=== PATIENT | male | born 1970 | race Two or more races ===

== ENCOUNTER → 2016-12-20 | Outpatient (CLI) | payer MEDICAID, OTHER | END | disposition home or self-care (01) | LOC: Rad HDHVI 14:53 | PROVIDERS: ATTEND Internal Medicine Cardiovascular Disease | DX: I08.1 Rheumatic disorders of both mitral and tricuspid valves (principal) | CPT/HCPCS: 93306 ==

== ENCOUNTER → 2017-01-16 | Outpatient (CLI) | payer MEDICAID ==
[~2017-01-16] VITALS: Ht 172.7 cm; Wt 110.7 kg
== END | disposition home or self-care (01) ==
LOC: Rad HDHVI 13:40
PROVIDERS: ATTEND Internal Medicine Cardiovascular Disease
DX: I10 Essential (primary) hypertension (principal); E11.9 Type 2 diabetes mellitus without complications; R07.9 Chest pain, unspecified; E78.00 Pure hypercholesterolemia, unspecified
CPT/HCPCS: 93017

== ENCOUNTER 2017-01-29 09:55 | Inpatient (IN) | payer MEDICAID ==
[~2017-01-29] VITALS: Ht 175.3 cm; Wt 112.6 kg
[2017-01-29 10:43] LABS: Basophils # (auto) 0 uL; Basophils % (auto) 0.7 % (0.0-2.0); Eosinophils # (auto) 0.3 uL; Eosinophils % (auto) 7.7 % (0.0-7.0); Hematocrit 43.7 % (41.0-53.0); Hemoglobin 15.1 g/dL (13.5-17.5); Lymphocytes # (auto) 1.7 uL; Mean Corpuscular Hemoglobin 29.7 pg (28.0-32.0); Mean Corpuscular Hgb Conc. 34.5 g/dL (32.0-36.0); Mean Corpuscular Volume 86.1 fL (80.0-100.0); Mean Platelet Volume 8.6 fL (7.4-10.4); Monocytes # (auto) 0.3 uL; Monocytes % (auto) 8.6 % (0.0-12.0); Neutrophils # (auto) 1.6 uL; Platelet Count (auto) 244 10^3/uL (140-450); Red Cell Distribution Width 13.9 % (11.6-16.0)
[2017-01-29 11:05] LABS: Albumin 3.7 g/dL (3.4-5.0); Alkaline Phosphatase 95 U/L (45-117); Anion Gap 9 (5-15); Aspartate Aminotransferase 20 U/L (15-37); BUN/Creatinine Ratio 20.3; Bilirubin, Total 0.6 mg/dL (0.2-1.0); Blood Urea Nitrogen 14 mg/dL (7-18); Calcium 8.6 mg/dL (8.5-10.1); Carbon Dioxide 25 mmol/L (21-32); Chloride 104 mmol/L (98-107); GFR African American 158 mL/min; GFR Non-African American 131 mL/min; Glucose 114 mg/dL (74-106); Magnesium 2.5 mg/dL (1.6-2.6); Potassium 3.6 mmol/L (3.5-5.1); Sodium 138 mmol/L (136-145); Total Protein 7.5 g/dL (6.4-8.2)
[2017-01-29] MEDS ORDERED: SODIUM CHLORIDE 0.9% 1,000 ML IV ONE (11:22)
[2017-01-29] MEDS ORDERED: NITROGLYCERIN 0.4 MG SL TAB SL PRN (13:45)
[2017-01-29] MEDS ORDERED: HYDROcodone-ACET 5/325MG TAB PO PRN (13:45)
[2017-01-29] MEDS ORDERED: TEMAZEPAM 15 MG CAP PO PRN (13:45)
[2017-01-29] MEDS ORDERED: MORPHINE SULF INJ 2 MG/ML SYRINGE 1ML IV PRN ×2 (13:45)
[2017-01-29] MEDS ORDERED: PROMETHAZINE HCL 25 MG/ML 1ML IV PRN (13:45)
[2017-01-29] MEDS ORDERED: ACETAMINOPHEN 500 MG TAB PO PRN (13:45)
[2017-01-29] MEDS ORDERED: LORazepam 0.5 MG TAB PO PRN (13:45)
[2017-01-29] MEDS ORDERED: LACTULOSE 20Gm/30ML SOLN PO PRN (13:45)
[2017-01-29] MEDS ORDERED: ASPirin 81 mg TAB PO ONE (14:00)
[2017-01-29] MEDS ORDERED: PANTOPRAZOLE 40 MG TAB PO ONE (14:00)
[2017-01-29] MEDS ORDERED: NITROGLYCERIN 0.2MG/HR TOPICAL PATCH TD ONE (14:00)
[2017-01-29] MEDS: ENOXAPARIN SOD 40 MG/0.4 ML SYRINGE SC SCH (14:20)
[2017-01-29] MEDS: SODIUM CHLORIDE 0.9% 1,000 ML IV SCH (14:20)
[2017-01-29] MEDS ORDERED: PNEUMOCOCCAL VACC POLYS 25 MCG/0.5 ML VIAL IM ONE (16:15)
[2017-01-29 18:41] VITALS: BP 125/79
[2017-01-29 20:59] VITALS: BP 118/75
[2017-01-29] MEDS: METOPROLOL TARTRATE 25 MG TAB PO SCH (21:41)
[2017-01-29] MEDS: ATORVASTATIN 20 MG TAB PO SCH (21:41)
[2017-01-29] MEDS ORDERED: METO-158 PO (21:47)
[2017-01-29] MEDS ORDERED: ASPI81TA27 PO (21:47)
[2017-01-30] MEDS: SODIUM CHLORIDE 0.9% 1,000 ML IV SCH ×2 (03:03→16:32)
[2017-01-30 05:28] VITALS: BP 122/76
[2017-01-30 07:02] LABS: Cholesterol 132 mg/dL (< 200); HDL Cholesterol 35 mg/dL (40-59); LDL Cholesterol 88 mg/dL (< 100); Triglycerides 180 mg/dL (< 150)
[2017-01-30 08:00] VITALS: BP 129/79
[2017-01-30 08:41] VITALS: BP 127/79
[2017-01-30] MEDS ORDERED: cloNIDine HCL 0.1 MG TAB PO PRN (10:00)
[2017-01-30] MEDS: ASPirin 81 mg TAB PO SCH (10:01)
[2017-01-30] MEDS: ENOXAPARIN SOD 40 MG/0.4 ML SYRINGE SC SCH (10:01)
[2017-01-30] MEDS: PANTOPRAZOLE 40 MG TAB PO SCH (10:01)
[2017-01-30] MEDS: METOPROLOL TARTRATE 25 MG TAB PO SCH ×2 (10:02→22:19)
[2017-01-30] MEDS: NITROGLYCERIN 0.2MG/HR TOPICAL PATCH TD SCH (10:03)
[2017-01-30] MEDS: ALBUTEROL SULF 2.5 MG/0.5ML(0.5%) NEB SOLN NEB SCH ×2 (12:00→18:00)
[2017-01-30 13:34] VITALS: BP 122/81
[2017-01-30 17:26] VITALS: BP 125/76
[2017-01-30 19:25] LABS: Urine Bilirubin Negative (Negative); Urine Blood Negative /uL (Negative); Urine Color Yellow (Yellow); Urine Glucose Normal (Normal); Urine Ketone Negative (Negative); Urine Nitrite Negative (Negative); Urine RBC <1 /hpf (0 - 3); Urine Urobilinogen Normal (Negative); Urine pH 6.5 (5.0-8.0)
[2017-01-30] MEDS: ATORVASTATIN 20 MG TAB PO SCH (22:19)
[2017-01-30 22:56] VITALS: BP 122/79
[2017-01-31 00:13] VITALS: BP 122/79
[2017-01-31 05:26] VITALS: BP 93/58
[2017-01-31 05:40] VITALS: BP 132/89
[2017-01-31] MEDS: SODIUM CHLORIDE 0.9% 1,000 ML IV SCH (05:43)
[2017-01-31] MEDS: ALBUTEROL SULF 2.5 MG/0.5ML(0.5%) NEB SOLN NEB SCH ×2 (06:00→12:00)
[2017-01-31 06:50] LABS: Basophils # (auto) 0 uL; Basophils % (auto) 0.4 % (0.0-2.0); Eosinophils # (auto) 0.2 uL; Eosinophils % (auto) 5.6 % (0.0-7.0); Hematocrit 44.1 % (41.0-53.0); Hemoglobin 15.2 g/dL (13.5-17.5); Lymphocytes # (auto) 2.1 uL; Lymphocytes % (auto) 48.3 % (10.0-50.0); Mean Corpuscular Hemoglobin 29.9 pg (28.0-32.0); Mean Corpuscular Hgb Conc. 34.5 g/dL (32.0-36.0); Mean Corpuscular Volume 86.6 fL (80.0-100.0); Monocytes # (auto) 0.4 uL; Monocytes % (auto) 9.4 % (0.0-12.0); Neutrophils # (auto) 1.6 uL; Neutrophils % (auto) 36.3 % (37.0-80.0); Platelet Count (auto) 237 10^3/uL (140-450); Red Cell Distribution Width 13.7 % (11.6-16.0); White Blood Cell 4.4 10^3/uL (4.4-10.8)
[2017-01-31 07:12] LABS: Albumin 3.4 g/dL (3.4-5.0); Anion Gap 10 (5-15); Aspartate Aminotransferase 21 U/L (15-37); BUN/Creatinine Ratio 20.3; Blood Urea Nitrogen 14 mg/dL (7-18); Calcium 8.5 mg/dL (8.5-10.1); Carbon Dioxide 26 mmol/L (21-32); Chloride 106 mmol/L (98-107); GFR African American 158 mL/min; GFR Non-African American 131 mL/min; Glucose 102 mg/dL (74-106); Sodium 142 mmol/L (136-145)
[2017-01-31 07:17] LABS: Alkaline Phosphatase 89 U/L (45-117); Bilirubin, Total 0.4 mg/dL (0.2-1.0); Total Protein 6.9 g/dL (6.4-8.2)
[2017-01-31] MEDS ORDERED: IOHEXOL 350 MG/ML 100ML IJ ONE (07:38)
[2017-01-31] MEDS ORDERED: LIDOCAINE 2%HCL (LOCAL ANESTH.) INJ 20ML MDV ONE (07:39)
[2017-01-31] MEDS ORDERED: fentaNYL CITRATE 100 MCG/2 ML VL ONE (08:03)
[2017-01-31] MEDS ORDERED: ANGIOMAX 250 MG VIAL IV ONE (08:03)
[2017-01-31] MEDS ORDERED: SODIUM CHL 0.9% 0 ML ONE (08:03)
[2017-01-31] MEDS ORDERED: MIDAZOLAM HCL 1MG/1ML-2 ML VIAL ONE (08:03)
[2017-01-31 08:37] LABS: Prothrombin Time 10.9 sec (9.37-12.3)
[2017-01-31 09:17] VITALS: BP 146/94
[2017-01-31] MEDS ORDERED: SODIUM CHLORIDE 0.9% 1,000 ML IV SCH (09:34)
[2017-01-31] MEDS: ENOXAPARIN SOD 40 MG/0.4 ML SYRINGE SC SCH (10:00)
[2017-01-31] MEDS: NITROGLYCERIN 0.2MG/HR TOPICAL PATCH TD SCH (10:00)
[2017-01-31] MEDS: PANTOPRAZOLE 40 MG TAB PO SCH (10:29)
[2017-01-31] MEDS: ASPirin 81 mg TAB PO SCH (10:29)
[2017-01-31] MEDS: METOPROLOL TARTRATE 25 MG TAB PO SCH (10:55)
[2017-01-31 13:00] VITALS: BP 130/80
== END 2017-01-31 17:30 | disposition home or self-care (01) | DRG 192 ==
LOC: ER 09:55 → TELE-CENTR 09:56
PROVIDERS: ADMIT Internal Medicine; ATTEND Internal Medicine
PROC: 4A023N7 Measurement of Cardiac Sampling and Pressure, Left Heart, Percutaneous Approach (ICD-10-PCS; principal; 2017-01-31)
PROC: B2111ZZ Fluoroscopy of Multiple Coronary Arteries using Low Osmolar Contrast (ICD-10-PCS; 2017-01-31)
PROC: B2151ZZ Fluoroscopy of Left Heart using Low Osmolar Contrast (ICD-10-PCS; 2017-01-31)
PROC: B41F1ZZ Fluoroscopy of Right Lower Extremity Arteries using Low Osmolar Contrast (ICD-10-PCS; 2017-01-31)
DX: R07.89 Other chest pain (principal); I10 Essential (primary) hypertension; K21.9 Gastro-esophageal reflux disease without esophagitis; J45.909 Unspecified asthma, uncomplicated; E66.9 Obesity, unspecified; Z68.36 Body mass index [BMI] 36.0-36.9, adult; Z23 Encounter for immunization
CPT/HCPCS: 36415; 71020; 80053; 80061; 80307; 81001; 82550; 83735; 84443; 84484; 85025; 85379; 85610; 85652; 86141; 87081; 87086; 93005; 93458; 94761; 96360; 96361; 99152; J2250